=== PATIENT | female | born 1965 | race Caucasian/White ===

== ENCOUNTER 2025-08-11 00:33 | Inpatient (IN) | payer OTHER ==
[~2025-08-11] VITALS: Ht 165.1 cm; Wt 59.9 kg
[2025-08-11 01:07] VITALS: O2SAT 100
[2025-08-11 02:34] LABS: COVID AG,FIA SOURCE NASAL SWAB
[2025-08-11 02:34] LABS: PLATELET COUNT (AUTO) 223 K/uL (150-450); RED BLOOD CELL COUNT(AUTO) 3.82 MIL/uL (4.00-5.20); RED CELL DISTRIBUTION WIDTH 13.3 % (11.5-14.5); WHITE BLOOD COUNT (AUTO) 4.1 K/uL (4.5-11.0)
[2025-08-11 02:38] LABS: APPEARANCE,URINE CLEAR (CLEAR); GLUCOSE, URINE (UA) NEGATIVE (NEGATIVE); LEUKOCYTE ESTERASE ,URINE SMALL (NEGATIVE); NITRATE,URINE NEGATIVE (NEGATIVE); OCCULT BLOOD,URINE NEGATIVE (NEGATIVE); PH,URINE DRUG SCREEN 5.5 (5.0-8.0); SPECIFIC GRAVITIY, URINE 1.020 (1.003-1.030)
[2025-08-11 02:45] LABS: ALCOHOL, URINE DRUG SCREEN NEGATIVE (NEGATIVE); AMPHET/METH SCREEN,URINE NEGATIVE (NEGATIVE); BARBITURATE SCREEN, URINE NEGATIVE (NEGATIVE); CANNABINOID SCREEN,URINE NEGATIVE (NEGATIVE); COCAINE SCREEN,URINE NEGATIVE (NEGATIVE); METHADONE SCREEN, URINE NEGATIVE (NEGATIVE)
[2025-08-11 02:46] LABS: CALCIUM, TOTAL 9.4 mg/dL (8.8-10.5); CREATININE 0.66 mg/dL (0.60-1.30); GLOMERULAR FILTR. RATE CALC > 60 mL/min (>60); GLUCOSE,RANDOM 88 mg/dL (70-110); SODIUM SERUM 140 mmol/L (136-145); UREA NITROGEN, BLOOD 16 mg/dL (7-18)
[2025-08-11 02:52] LABS: SQUAMOUS EPITHELIAL CELL,UR Rare /LPF (None Seen)
[2025-08-11 02:54] LABS: SARS-COV2 (COVID) ANTIGEN,FIA Negative (Negative)
[2025-08-11 06:10] VITALS: BP 141/76; PULSE 77; RESP 18; TEMP 97.5; O2SAT 98
[2025-08-11] MEDS ORDERED: ZOLPIDEM TARTRATE 10 MG TABLET PO PRN (06:15)
[2025-08-11] MEDS ORDERED: DOCUSATE SODIUM 100 MG CAPSULE PO PRN (06:30)
[2025-08-11] MEDS ORDERED: MAGNESIUM HYDROXIDE SUSPENSION 30 ML UDCUP PO PRN (06:30)
[2025-08-11] MEDS ORDERED: ONDANSETRON 4 MG TABLET PO PRN (06:30)
[2025-08-11] MEDS ORDERED: MAG HYDROX/ALUMINUM HYD/SIMETH ES 30 ML SUSPENSION UDCUP PO PRN (06:30)
[2025-08-11] MEDS ORDERED: LOPERAMIDE HCL 2 MG CAPSULE PO PRN (06:30)
[2025-08-11] MEDS ORDERED: ACETAMINOPHEN 325 MG TABLET PO PRN (06:30)
[2025-08-11] MEDS ORDERED: PETROLATUM,WHITE 28 GM JELLY TP PRN (06:30)
[2025-08-11] MEDS ORDERED: GuaiFENesin/D-METHORPHAN [SUGAR-FREE] 200-20MG/10 ML SYRUP UDCUP PO PRN (06:30)
[2025-08-11] MEDS ORDERED: NICOTINE 14 MG/24 HOUR PATCH TD PRN (06:30)
[2025-08-11] MEDS ORDERED: ALBUTEROL SULFATE HFA 90 MCG/PUFF 8 GM INHALER IH PRN (06:30)
[2025-08-11] MEDS ORDERED: PNEUMOCOCCAL VACCINE POLYVALENT 0.5 ML SYRINGE [PPSV23] IM. ONE (07:15)
[2025-08-11] MEDS ORDERED: INFLUENZA VIRUS VACCINE TVS (6MO+) 2025-26/PF 45 MCG/0.5 ML SYRINGE IM. ONE (07:15)
[2025-08-11 08:21] VITALS: RESP 16
[2025-08-11 20:11] VITALS: BP 121/76; PULSE 100; RESP 17; TEMP 98; O2SAT 99
[2025-08-11] MEDS: MIRTAZAPINE 15 MG TABLET PO SCH (20:20)
[2025-08-12 08:15] VITALS: BP 112/75; PULSE 94; RESP 17; TEMP 97.7; O2SAT 100
[2025-08-12 09:08] LABS: PLATELET COUNT (AUTO) 236 K/uL (150-450); RED BLOOD CELL COUNT(AUTO) 3.97 MIL/uL (4.00-5.20); RED CELL DISTRIBUTION WIDTH 12.9 % (11.5-14.5); WHITE BLOOD COUNT (AUTO) 4.4 K/uL (4.5-11.0)
[2025-08-12 09:18] LABS: PH,URINE DRUG SCREEN 5.5 (5.0-8.0)
[2025-08-12 09:38] LABS: ALCOHOL, URINE DRUG SCREEN NEGATIVE (NEGATIVE); AMPHET/METH SCREEN,URINE NEGATIVE (NEGATIVE); BARBITURATE SCREEN, URINE NEGATIVE (NEGATIVE); CANNABINOID SCREEN,URINE NEGATIVE (NEGATIVE); COCAINE SCREEN,URINE NEGATIVE (NEGATIVE); METHADONE SCREEN, URINE NEGATIVE (NEGATIVE)
[2025-08-12 09:42] LABS: ASPARTATE AMINOTRANSFERASE 24 U/L (15-37); CALCIUM, TOTAL 9.3 mg/dL (8.8-10.5); CHOL/HDL RATIO 2.6 (3.9-5.7); CREATININE 0.60 mg/dL (0.60-1.30); GLOMERULAR FILTR. RATE CALC > 60 mL/min (>60); GLUCOSE,RANDOM 109 mg/dL (70-110); LDL CHOL (CALC.) 90 mg/dL (0-130); SODIUM SERUM 142 mmol/L (136-145); TOTAL PROTEIN, SERUM 7.4 g/dL (6.4-8.2); UREA NITROGEN, BLOOD 20 mg/dL (7-18)
[2025-08-12 21:01] VITALS: BP 120/77; PULSE 75; RESP 16; TEMP 97.5; O2SAT 98
[2025-08-13 08:38] VITALS: BP 114/80; PULSE 87; RESP 16; TEMP 97.7; O2SAT 100
[2025-08-13 20:10] VITALS: BP 125/85; PULSE 82; RESP 17; TEMP 97.7; O2SAT 100
[2025-08-14 04:27] VITALS: BP 140/84; PULSE 87; RESP 18; TEMP 97.5; O2SAT 98
[2025-08-14] MEDS: IBUPROFEN 400 MG TABLET PO PRN (04:27)
[2025-08-14 05:27] VITALS: RESP 17
[2025-08-14 08:21] VITALS: BP 131/91; PULSE 81; RESP 16; TEMP 97; O2SAT 99
[2025-08-14] MEDS ORDERED: MIRT-89 PO (14:39)
[2025-08-14] MEDS ORDERED: LEVO250T75 PO (14:41)
== END 2025-08-14 15:45 | disposition home or self-care (01) | DRG 885 ==
LOC: EMS 00:33 → B3A 04:06
PROVIDERS: ADMIT Psychiatry & Neurology Child & Adolescent Psychiatry; ATTEND Psychiatry & Neurology Child & Adolescent Psychiatry
PROC: GZ56ZZZ Individual Psychotherapy, Supportive (ICD-10-PCS; principal; 2025-08-11)
PROC: GZ58ZZZ Individual Psychotherapy, Cognitive-Behavioral (ICD-10-PCS; 2025-08-11)
DX: F33.2 Major depressive disorder, recurrent severe without psychotic features (principal); D72.819 Decreased white blood cell count, unspecified; I10 Essential (primary) hypertension; G47.00 Insomnia, unspecified; Z20.822 Contact with and (suspected) exposure to COVID-19; Z85.3 Personal history of malignant neoplasm of breast; Z88.0 Allergy status to penicillin; Z88.1 Allergy status to other antibiotic agents; Z88.2 Allergy status to sulfonamides
CPT/HCPCS: 80048; 80053; 80061; 80307; 81001; 83036; 84443; 85025; 87086; 99285; G0480